=== PATIENT | female | born 1970 | race Hispanic/Latino ===

== ENCOUNTER 2017-08-13 10:15 | Day surgery (SDC) | payer MEDICAID ==
[~2017-08-13] VITALS: Ht 162.6 cm; Wt 82.6 kg
[~2017-08-13 10:15] MED LIST: ALBU6.7H IH; ATOR10TA69 PO; BECL8.7A7 IH; CITA-107 PO; DULO60CA44 PO; GABA-531 PO; LEVO50TA11 PO; LOSA100T29 PO; MELO-108 PO; METF10004 PO; MONT10TA24 PO; SITA100T12 PO; SODIUM CHLORIDE 0.9% 1000ML 1,000 ML IV ONE; [UNRECOGNIZED DRUG - CODE] OP
[2017-08-13 10:59] VITALS: BP 135/80
[2017-08-13 12:07] VITALS: BP 116/68
== END 2017-08-13 12:50 | disposition home or self-care (01) ==
LOC: DAH 10:15 → ENDO 10:15
PROVIDERS: ATTEND Internal Medicine
DX: K29.50 Unspecified chronic gastritis without bleeding (principal); E78.5 Hyperlipidemia, unspecified; I10 Essential (primary) hypertension; F41.9 Anxiety disorder, unspecified; F32.9 Major depressive disorder, single episode, unspecified; J45.909 Unspecified asthma, uncomplicated; E11.9 Type 2 diabetes mellitus without complications; G47.30 Sleep apnea, unspecified; Z90.49 Acquired absence of other specified parts of digestive tract; Z98.51 Tubal ligation status; Z68.31 Body mass index [BMI] 31.0-31.9, adult; Z98.890 Other specified postprocedural states
CPT/HCPCS: 43239; 82948 ×2; A4606; J7030

== ENCOUNTER 2018-08-18 17:29 | Emergency (ER) | payer MEDICAID, OTHER ==
[~2018-08-18 17:29] MED LIST changes: -LOSA100T29 PO; +LOSA100T58 PO; +METF-446 PO; -METF10004 PO; -SODIUM CHLORIDE 0.9% 1000ML 1,000 ML IV ONE
[2018-08-18] MEDS ORDERED: METHYLPREDNISOLONE SOD SUCC 125MG/2ML VIAL ONE (18:07)
[2018-08-18] MEDS ORDERED: IPRATROPIUM/ALBUTEROL SULFATE 3 ML SOLUTION IH ONE (18:07)
[2018-08-18 18:22] LABS: BASOPHILS % (AUTO) 0.5 % (0.0-5.0); EOSINOPHILS % (AUTO) 1.2 % (0.0-8.0); HEMATOCRIT 40.2 % (36-48); MEAN CORPUSCULAR HEMOGLOBIN 26.2 pg (27.0-33.0); MEAN CORPUSCULAR HGB CONC 32.4 g/dL (32.0-36.0); MEAN CORPUSCULAR VOLUME 80.8 fL (79-99); MONOCYTES % (AUTO) 5.4 % (3.0-13.0); NEUTROPHILS % (AUTO) 58.9 % (40.0-77.0); PLATELET COUNT (AUTO) 410 K/uL (130-400); RED BLOOD CELL COUNT(AUTO) 4.98 MIL/uL (4.00-5.50); RED CELL DISTRIBUTION WIDTH 13.9 % (11.0-15.5); WHITE BLOOD COUNT (AUTO) 11.8 K/uL (4.8-10.8)
[2018-08-18 18:33] LABS: CREATININE 0.8 mg/dL (0.5-1.5); POTASSIUM 3.9 mmol/L (3.5-5.1)
[2018-08-18 18:37] LABS: ALBUMIN 3.5 g/dL (3.5-5.0); BILIRUBIN,DIRECT 0.1 mg/dL (0.0-0.3); BILIRUBIN,TOTAL 0.4 mg/dL (0.2-1.0)
[2018-08-18 18:40] LABS: RAPID GROUP A STREP NEGATIVE (NEGATIVE)
[2018-08-18 18:51] LABS: APPEARANCE,URINE Clear (CLEAR); BILIRUBIN,URINE Negative (NEGATIVE); COLOR,URINE Yellow (YELLOW); GLUCOSE, URINE (UA) >=1000 mg/dL (NEGATIVE); KETONES,URINE Negative (NEGATIVE); LEUKOCYTE ESTERASE ,URINE Negative (NEGATIVE); NITRATE,URINE Negative (NEGATIVE); OCCULT BLOOD,URINE Negative (NEGATIVE); PH,URINE 6.5 (5.0-8.0); PROTEIN,URINE Negative (NEGATIVE); UROBILINOGEN,URINE 0.2 mg/dL (0.2-1.0)
[2018-08-18 18:55] LABS: HCG,QUAL RESULT NEGATIVE (NEGATIVE)
== END 2018-08-18 19:40 | disposition home or self-care (01) ==
LOC: EDH 17:29
DX: J20.9 Acute bronchitis, unspecified (principal); J45.909 Unspecified asthma, uncomplicated; E11.9 Type 2 diabetes mellitus without complications; E78.5 Hyperlipidemia, unspecified; I10 Essential (primary) hypertension
CPT/HCPCS: 36415; 71046; 80048; 80076; 81003; 81025; 83690; 85025; 87804 ×2; 87880; 94640; 96372; 99285; J2930

== ENCOUNTER 2023-02-09 18:41 | Emergency (ER) | payer OTHER, SELFPAY ==
[~2023-02-09] VITALS: Ht 162.6 cm; Wt 79.8 kg
[~2023-02-09 18:41] MED LIST changes: -ALBU6.7H IH; +ALBU6.7H14 IH; -DULO60CA44 PO; +DULO60CA45 PO; -LOSA100T58 PO; +LOSA100T59 PO; +MONT-39 PO; -MONT10TA24 PO
[2023-02-09 20:29] VITALS: BP 143/88; PULSE 89; RESP 18
[2023-02-09 20:57] LABS: RAPID GROUP A STREP negative (NEGATIVE)
[2023-02-09 21:01] LABS: SARS-CoV-2, RNA, NAAT NEGATIVE SARS CoV-2 (NEGATIVE)
[2023-02-09 21:06] LABS: INFLUENZA TYPE B Negative For Type B (NEGATIVE)
[2023-02-09 21:13] LABS: INFLUENZA TYPE A Positive For Type A (NEGATIVE)
[2023-02-09] MEDS ORDERED: OSEL75 PO (21:20)
[2023-02-09] MEDS ORDERED: GUAI600T50 PO (21:20)
== END 2023-02-09 22:25 | disposition home or self-care (01) ==
LOC: EDH 18:41
DX: J11.1 Influenza due to unidentified influenza virus with other respiratory manifestations (principal); I10 Essential (primary) hypertension; E11.9 Type 2 diabetes mellitus without complications; M79.7 Fibromyalgia; J45.909 Unspecified asthma, uncomplicated; Z20.822 Contact with and (suspected) exposure to COVID-19; Z90.49 Acquired absence of other specified parts of digestive tract; Z79.84 Long term (current) use of oral hypoglycemic drugs; Z79.899 Other long term (current) drug therapy; Z98.890 Other specified postprocedural states
CPT/HCPCS: 99283; 87635; 87880; 87804 ×2; C9803

== ENCOUNTER 2024-06-05 16:50 | Emergency (ER) | payer BC ==
[~2024-06-05] VITALS: Ht 162.6 cm; Wt 86.2 kg
[~2024-06-05 16:50] MED LIST changes: +GUAI600T50 PO; +OSEL75 PO
--- NOTE | 2024-06-05 16:59 | ERN ---
ED Note History of Present Illness Stated Complaint: ASTHMA EXACERBATION, COUGH Chief Complaint: Cough Time Seen by MD: 16:52 Dictation: PATIENT IS A 53-YEAR-OLD ASTHMATIC FEMALE COMING IN TODAY WITH SHORTNESS A BREATH ON EXERTION AND WHEEZING ONSET THIS AFTERNOON. SHE STATES SHE JUST GOT OVER COVID-19 LAST WEEK AND HAS BEEN DOING FINE UNTIL THIS AFTERNOON WHEN SHE STARTED HAVING SHORTNESS A BREATH AND USED HER INHALERS AND DID NOT GET ANY RELIEF. HAS A INHALER USE WAS ALBUTEROL1 HOUR PRIOR TO ARRIVAL. NO FEVER NO CHILLS NO NAUSEA VOMITING NO CHEST PAIN. Allergies: Coded Allergies: No Known Drug Allergies (Unverified Allergy, Unknown, 08/12/17) Home Meds Active Scripts Prednisone (Prednisone) 20 Mg Tablet, 1 TAB PO AD for 6 Days, #14 TAB 0 Refills TAKE 1 TAB BY MOUTH THREE TIMES PER DAY X3 DAYS, THEN TAKE 1 TAB BY MOUTH TWICE A DAY X2 DAYS, THEN TAKE 1 TAB BY MOUTH ONCE A DAY X1 DAY. TAKE WITH FOOD Prov:ELSA GRIFFIN NP 06/05/24 Guaifenesin (Mucinex) 600 Mg Tablet.er, 600 MG PO BID, #30 TAB Prov:TRINI HOUSTON PAC 02/09/23 Oseltamivir Phosphate (Tamiflu) 75 Mg Cap, 75 MG PO BID for 5 Days, #10 CAP Prov:TRINI HOUSTON 02/09/23 Reported Medications Hydroxyamphetamine/Tropicamide (Paremyd Eye Drops) 15 Ml Drops, 15 ML OP PM, DROP 08/12/17 Beclomethasone Dipropionate (Qvar) 8.7 Gm Aer.w.adap, 8.7 GM IH BID 08/12/17 Levothyroxine Sodium (Levothyroxine Sodium) 50 Mcg Tablet, 50 MCG PO DAILY, TAB 08/12/17 Montelukast Sodium (Montelukast Sodium) 10 Mg Tablet, 10 MG PO AM, TAB 08/12/17 Albuterol Sulfate (Proventil Hfa) 6.7 Gm Hfa.aer.ad, 6.7 GM IH QID 08/12/17 Atorvastatin Calcium (Atorvastatin Calcium) 10 Mg Tablet, 10 MG PO PM, TAB 08/12/17 Citalopram Hydrobromide (Citalopram HBr) 20 Mg Tablet, 20 MG PO AM, TAB 08/12/17 Meloxicam (Meloxicam) 15 Mg Tablet, 15 MG PO AM, TAB 08/12/17 Duloxetine HCl (Cymbalta) 60 Mg Capsule.dr, 60 MG PO DAILY, CAP 08/12/17 Gabapentin (Gabapentin) 300 Mg Capsule, 300 MG PO TID, CAP 08/12/17 Losartan Potassium (Losartan Potassium) 100 Mg Tablet, 100 MG PO AM, TAB 08/12/17 Sitagliptin Phosphate (Januvia) 100 Mg Tablet, 100 MG PO PM, TAB 08/12/17 Metformin HCl (Metformin HCl) 1,000 Mg Tablet, 1000 MG PO BID, TAB 08/12/17 Past Medical History Past Medical History: Asthma, Bronchitis, Diabetes-Type II, Fibromyalgia, Hypertension Additional Past Medical Hx: SLEEP APNEA Surgical History: Cholecystectomy, History: Not Applicable RN Note Reviewed/Agreed w/PFSH: Yes Review of System Dictation CONSTITUTIONAL: NEGATIVE EXCEPT FOR HPI HEAD/FACE: NEGATIVE EXCEPT FOR HPI EENT: NEGATIVE EXCEPT FOR HPI RESPIRATORY: NEGATIVE EXCEPT FOR HPI SHORTNESS A BREATH/BRONCHOSPASM GASTROINTESTINAL/ABDOMINAL: NEGATIVE EXCEPT FOR HPI GENITOURINARY: NEGATIVE EXCEPT FOR HPI MUSCULOSKELETAL: NEGATIVE EXCEPT FOR HPI INTEGUMENTARY: NEGATIVE EXCEPT FOR HPI NEUROLOGICAL/PSYCH: NEGATIVE EXCEPT FOR HPI HEMATOLOGIC/LYMPHATIC: NEGATIVE EXCEPT FOR HPI ALL SYSTEMS NEGATIVE, EXCEPT NOTED ABOVE. 13 POINT REVIEW OF SYSTEMS ASSESSED AND ALL NEGATIVE EXCEPT FOR ABOVE. Initial Vital Sign VS Vital Signs Date Time Temp Pulse Resp B/P (MAP) Pulse Ox O2 Delivery O2 Flow Rate FiO2 06/05/24 16:51 98.2 78 20 115/83 98 Room Air 0 06/05/24 17:07 21 Physical Exam Dictation VITAL SIGNS REVIEWED GENERAL APPEARANCE: ALERT, ORIENTED X 3, MODERATE ACUTE DISTRESS, WELL DEVELOPED, NOURISHED. OBESE HEAD AND FACE: NON-TRAUMATIC. EYES: PERRL, PINK CONJUNCTIVAS, EYELID NO TRAUMA, ANTERIOR CHAMBER WITH ARCUS SENILIS. EARS: PINNAS INTACT AND NO SIGNS OF TRAUMA OR ERYTHEMA EAR CANALS CLEAR AND NO DISCHARGE TM NO ERYTHEMA NOSE: NO DISCHARGE, NO BLEEDING. OROPHARYNX: MOUTH NORMAL, TONGUE PINK, PHARYNX CLEAR,NO ERYTHEMA, TONSILS NO EXUDATES, NO ABSCESSES NOTED, MUCOUS MEMBRANE MOIST NECK: SUPPLE, NON-TENDER, NO THYROMEGALY, NO MASSES, NO JVD, NO BRUITS BREAST:DEFERRED CHEST:NO TENDERNESS, NO CREPITUS, NO PARADOXICAL MOVEMENT, NO RETRACTIONS LUNGS:CLEAR, WELL-VENTILATED, SYMMETRIC, MILD EXPIRATORY WHEEZING TO BILATERAL UPPER LOBES. NO RETRACTIONS NO TACHYPNEA HEART: REGULAR RATE, REGULAR RHYTHM, NO MURMUR, NO GALLOPS VASCULAR: NO PERIPHERAL EDEMA, ABDOMEN: SOFT, POSITIVE BOWEL SOUNDS, NONDISTENDED, NO GUARDING, NONTENDER, NO REBOUND, NO MASSES NO HEPATOMEGALY, NO SPLENOMEGALY, NO QUIROZ'S SIGN, NO HERNIAS. RECTAL: DEFERRED GENITAL: DEFERRED NEUROLOGICAL: NORMAL SPEECH, MOTOR FUNCTION INTACT, SENSORY FUNCTION INTACT MUSCULOSKELETAL: NECK NONTENDER, FULL RANGE OF MOTION, BACK NONTENDER, FULL R DANN OF MOTION, EXTREMITIES: NONTENDER, FULL RANGE OF MOTION SKIN: COLOR PINK, DRY, NO TURGOR, NO RASH, NO LACERATIONS, NO ABRASIONS, NO CONTUSIONS. LYMPHATIC: DEFERRED Results (Laboratory/Radiology) Labs Reviewed?: Yes ED Course ED Course Orders Procedure Category Date Status Time Dexamethasone 4mg/Ml PHA 06/05/24 Complete 1ml Vial (Dexametha 17:00 Albuterol 0.083% PHA 06/05/24 Complete 2.5mg/3ml (Proventil 17:00 Budesonide 0.5 Mg/2 PHA 06/05/24 Complete Ml Inh (Pulmicort 0. 16:54 Current Medications Medications (Trade) Dose Ordered Sig/Sergei Route PRN Reason Start Time Stop Time Status Last Admin Dose Admin Albuterol Sulfate (Proventil 0.083% 2.5mg/3ml) 5 mg ONCE IH 06/05/24 17:00 06/05/24 18:52 DC 06/05/24 17:17 Budesonide (Pulmicort 0.5 Mg/2ml) 0.5 mg ONCE IH 06/05/24 16:54 06/05/24 18:52 DC 06/05/24 17:17 Dexamethasone Sodium Phosphate (dexaMETHasone 4MG/ML 1ML VIAL) 8 mg ONCE IM 06/05/24 17:00 06/05/24 18:52 DC 06/05/24 17:59 Vital Signs Date Time Temp Pulse Resp B/P (MAP) Pulse Ox O2 Delivery O2 Flow Rate FiO2 06/05/24 17:20 77 20 06/05/24 17:07 98.2 78 20 115/83 98 Room Air* 0 21 06/05/24 16:51 98.2 78 20 115/83 98 Room Air 0 1820/PATIENT IS SATURATING 98 99% ON ROOM AIR, BILATERAL BREATH SOUNDS CLEAR NOW NO RETRACTIONS OR TACHYPNEA. FEELS BETTER AND WANTS TO GO HOME. Medical Decision Making MDM MEDICAL DISCHARGE MAKING BASED ON TREATMENT FOR ACUTE ASTHMA FLARE BETTER AFTER TREATMENT DISCHARGED HOME STATES SHE HAS ALBUTEROL NEBULIZERS AT HOME BE GIVEN PREDNISONE AND TOLD TO SEE HER DOCTOR. DX & DISP Disposition: Discharge Departure Impression: Primary Impression: Acute asthma flare Additional Impression: Dyspnea on exertion Condition: Stable Scripts Prednisone (Prednisone) 20 Mg Tablet 1 TAB PO AD for 6 Days, #14 TAB 0 Refills TAKE 1 TAB BY MOUTH THREE TIMES PER DAY X3 DAYS, THEN TAKE 1 TAB BY MOUTH TWICE A DAY X2 DAYS, THEN TAKE 1 TAB BY MOUTH ONCE A DAY X1 DAY. TAKE WITH FOOD Prov: ELSA GRIFFIN NP 06/05/24 Additional Instructions: FOLLOW-UP WITH PRIMARY CARE PROVIDER IN 1 TO 2 DAYS. TAKE MEDICATIONS DIRECT ED HERE IN THE EMERGENCY ROOM. OKAY TO CONTINUE HOME MEDICATIONS UNLESS OTHERWISE DISCUSSED DURING YOUR VISIT IN THE EMERGENCY ROOM TODAY. RETURN TO YOUR NEAREST EMERGENCY ROOM IF SYMPTOMS WORSEN OR IF THERE IS NO IMPROVEMENT. CALL 911 IF YOU NEED IMMEDIATE ASSISTANCE. TAKE TYLENOL OR MOTRIN [id number]-[id number] NEEDED AND IF NO CONTRAINDICATIONS ARE PRESENT. INCREASE ORAL HYDRATION. A WOUND CULTURE OR URINE CULTURE WAS ORDERED HERE IN THE EMERGENCY ROOM DEPARTMENT PLEASE FOLLOW-UP WITH PRIMARY CARE PROVIDER AND ADVISE THEM TO GET REPEAT PORTS FROM OUR FACILITY. IF YOU HAD ANY RORY WRAP/SPLINTS THAT WERE APPLIED HERE, PLEASE DO NOT REMOVE THEM UNTIL YOU SEE YOUR PRIMARY CARE OR SPECIALTY. CONTINUE YOUR ALBUTEROL AT HOME PER YOUR DOCTOR. TAKE PREDNISONE DIRECTED UNTIL GONE. SEE YOUR DOCTOR FOR FOLLOW UP AND MANAGE Referrals: SELF,REFERRAL (PCP) Time of Disposition: 18:22 I have reviewed the case, and I agree with, Diagnosis and Plan ELSA GRIFFIN NP Jun 05, 2024 16:59 KENNEDY OSBORNE DO Jun 06, 2024 07:58
[2024-06-05 17:07] VITALS: BP 115/83; TEMP 98.2; O2SAT 98
[2024-06-05] MEDS: BUDESONIDE 0.5 MG/2 ML INH IH SCH (17:17)
[2024-06-05] MEDS: ALBUTEROL 0.083% 2.5 MG/3 ML INH IH SCH (17:17)
[2024-06-05 17:20] VITALS: PULSE 77; RESP 20
[2024-06-05] MEDS: dexaMETHasone SOD PHOSPHATE 4 MG/ML 1ML VIAL IM SCH (17:59)
[2024-06-05] MEDS ORDERED: PRED20TA3 PO (18:23)
== END 2024-06-05 18:52 | disposition home or self-care (01) ==
LOC: EDH 16:50
DX: J45.901 Unspecified asthma with (acute) exacerbation (principal); R06.00 Dyspnea, unspecified; E11.9 Type 2 diabetes mellitus without complications; I10 Essential (primary) hypertension; M79.7 Fibromyalgia; Z79.51 Long term (current) use of inhaled steroids; Z79.84 Long term (current) use of oral hypoglycemic drugs; Z79.890 Hormone replacement therapy; Z79.899 Other long term (current) drug therapy; Z90.49 Acquired absence of other specified parts of digestive tract
CPT/HCPCS: 99284; 96372; 94640; J1100